=== PATIENT | male | born 1985 | race Caucasian/White ===

== ENCOUNTER 2017-06-29 03:34 | Inpatient (IN) | payer OTHER ==
[~2017-06-29] VITALS: Ht 182.9 cm; Wt 98.9 kg
[2017-06-29 05:15] VITALS: BP 137/85; PULSE 83; RESP 18; TEMP 97.1; O2SAT 98
[2017-06-29] MEDS ORDERED: ACETAMINOPHEN 325 MG TAB PO PRN (06:45)
[2017-06-29] MEDS ORDERED: ALUMINUM/MAGNESIUM/SIMETH 30 ML CUP PO PRN (06:45)
[2017-06-29] MEDS ORDERED: MAGNESIUM HYDROXIDE SUSP 30 ML CUP PO PRN (06:45)
--- NOTE | 2017-06-29 09:50 | HHI.HP ---
Provisional Diagnosis Admission Date Jun 29, 2017 at 05:20 [place] I. 1. Adjustment disorder with mixed anxiety and depression 2. Use of cannabis [place] II. Deferred Certification of Person's Competence To Provide Express and Informed Consent I have personally examined Tate Hart , a [facility] on, Jun 29, 2017 09:49. Express and informed consent means consent voluntarily given in writing, by a competent person, after sufficient explanation and disclosure of the subject matter involved to enable the person to make a knowing and willful decision without any element of force, fraud, deceit, duress, or other form of constraint or coercion. This person is 18 years of age or older, is not now known to be incompetent to consent to treatment with a guardian advocate, and does not have a health care surrogate or proxy currently making medical treatment decisions. I have found this person to be one of the following: [x] Competent to provide express and informed consent, as defined above, for voluntary admission to this facility and is competent to provide express and informed consent for treatment. He/she has the consistent capacity to make well reasoned, willful, and knowing decisions concerning his or her medical or mental health treatment. The person fully and consistently understands the purpose of the admission for examination/placement and is fully capable of personally exercising all rights assured under [place] Incompetent to provide express and informed consent to voluntary admission, and this is incompetent to provide express and informed consent to treatment. The person must be transferred to involuntary status and a petition for a guardian advocate filed with the Circuit Court. [] Refusing to provide express and informed consent to voluntary admission but is competent to provide express and informed consent for treatment. The person must be discharged or transferred to involuntary status. Form shall be completed within 24 hours of a person's arrival at the receiving facility and filed in the clinical record of each person: 1. Admitted on a voluntary basis 2. Permitted to provide express and informed consent to his/her own treatment 3. Allowed to transfer from involuntary to voluntary status 4. Prior to permitting a person to consent to his or her own treatment after having been previously found incompetent to consent to treatment. History of Present Illness Capacity: Has Capacity Psych Chief Complaint: "Yesterday was the culmination of all these things. I had a panic attack." HPI Mr. Hart is a 31 year-old male with no previously diagnosed psychiatric illness who presents in transfer from [facility] under a [place] Act. Documentation from [facility] reviewed. Patient was seen by Dr. Ceballos for telepsychiatric evaluation and reportedly endorsed suicidal ideation at that time. Reviewing our electronic medical record, it appears this is patient's first visit to [place]. Patient seen and examined with nurse. Chart reviewed. Case discussed with nursing staff. 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 He notes that he was at [employer] across the street from the [facility] and felt overwhelmed, "like someone was sitting on my chest." He saw the hospital across the street and thought he should stop in for some help. He adamantly denies reporting suicidal or homicidal ideation to the telepsychiatrist. He denies suicidal or homicidal ideation now. He says that he tried to hang himself about 8 months ago and would never make an attempt again because of the impact it would have on his family. He reports ongoing generalized anxiety as well as some ongoing low mood. No severe depressive elicited. No hypomanic or manic symptoms elicited presently, nor does the patient give a history consistent with bipolar disorder. He denies any audiovisual hallucinations. I can elicit no delusional material. The remainder of psychiatric ROS is negative. The patient has no physical complaints presently. Past psychiatric history: Patient knows of no previous psychiatric diagnoses. He had seen a psychotherapist, a Dr. Morse, twice weekly up until about 6 months ago when he had to stop due to financial reasons, but he is not sure that he was ever given a diagnosis. He did find the psychotherapy quite helpful. He denies a history of psychiatric admissions. He does report 1 previous suicide attempt about 8 months ago when he tried to hang himself as noted above. Family history: The patient reports a history of depression in both sides of his family. He denies a family history of suicide or substance use disorder. Chemical dependency history: The patient admits to occasional use of cannabis and describes himself as a "casual drinker." Social history: The patient reports that he is the eldest of 5 children. He lives alone. He is high school educated. 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 He is single with no children. He denies any or legal history. He is a Nondenominational although he notes that he has lost his britney somewhat after his mother from cancer. He did have several firearms but disposed of them at Dr. Morse's recommendation and denies access to guns or firearms presently. No reported trauma history. Review of Systems Except as stated in HPI: all other systems reviewed are Neg Past Family Social History Coded Allergies: No Known Allergies (Verified Allergy, Unknown, 06/29/17) Past Medical History No reported past medical history Current Medications Medications (Trade) Dose Ordered Sig/Laura Route Start Time Stop Time Status Last Admin (Tylenol) 650 mg Q4H PRN PO 06/29/17 06:45 (Milk Of Magnesia Liq) 30 ml DAILY PRN PO 06/29/17 06:45 (Mag-Al Plus Susp Liq) 30 ml Q6H PRN PO 06/29/17 06:45 (Pneumovax-23 Inj) 25 mcg ONCE ONCE IM 06/30/17 10:00 06/30/17 10:01 Patient's Strengths (min. 2) In a monitored setting. Verbally fluent. Physical Exam Physical exam completed by ED provider at outside hospital. On my examination today, the patient appears to be in no acute physical distress. No motor abnormalities noted. Labs and vitals reviewed: Vital Signs Vital Signs Date Time Temp Pulse Resp B/P (MAP) Pulse Ox O2 Delivery O2 Flow Rate FiO2 06/29/17 05:15 97.1 83 18 137/85 (102) 98 Lab Results Labs from outside hospital reviewed: CBC reveals mils leukocytosis with WBC 12.92. BMP unremarkable. UTox +ve for cannabinoids. Tylenol and alcohol level undetectable. Mental Status Examination Appearance: Appropriate Consciousness: Alert Orientation: x4 Motor Activity: Normal gait Speech: Unremarkable Language: Adequate Fund of Knowledge: Adequate Attention and Concentration: Adequate Memory: Unremarkable Mood: Anxious, Other (mildly depressed) Affect: Appropriate Thought Process & Associations: Intact, Logical, Linear Thought Content: Appropriate Hallucination Type: None Delusion Type: None Suicidal Ideation: No Suicidal Plan: No Suicidal Intention: No Homicidal Ideation: No Homicidal Plan: No Homicidal Intention: No Insight: Adequate Judgment: Adequate Assessment & Plan Problem List: (1) Adjustment disorder with mixed anxiety and depressed mood ICD Codes: F43.23 - Adjustment disorder with mixed anxiety and depressed mood (2) Use of cannabis ICD Codes: F12.90 - Cannabis use, unspecified, uncomplicated Assessment & Plan This is a 31-year-old male with psychiatric history as detailed above who presents in transfer from outside hospital. On my examination today, the patient denies any suicidal or homicidal ideation but does admit to feeling overwhelmed and complains of ongoing anxiety and low mood. He does have a history of previous suicide attempts. Nursing staff has obtain collateral from the patient's father which, although not terribly disturbing, is not particularly reassuring regarding patient's suicide/violence risk. Therefore, I think a period of inpatient observation is warranted, and the patient has agreed to remain voluntarily on the unit for this purpose. Admit inpatient. Voluntary status. Check CBC and CMP to follow up laboratory abnormalities. Check TSH. Offered scheduled psychotropic for management of anxiety and depression (e.g. SSRI), but patient declines at this time. Atarax as needed for anxiety, Benadryl as needed for insomnia or EPS. Vitals every shift. Counselor to see. Disposition planning. Estimated length of stay: 3-5 days. Discharge Planning Pending outcome of observation. Request HC Surrog/Guard Advoc?: No William Artis MD Jun 29, 2017 09:49
[2017-06-29] MEDS ORDERED: diphenhydrAMINE HCL 50 MG CAP PO PRN (17:45)
[2017-06-29] MEDS ORDERED: hydrOXYzine HCL 50 MG TAB PO PRN (17:45)
[2017-06-29 18:00] VITALS: BP 138/82; PULSE 105; RESP 16; TEMP 98.2; O2SAT 98
[2017-06-30 06:07] VITALS: BP 131/80; PULSE 90; RESP 18; TEMP 97.6; O2SAT 98
[2017-06-30] MEDS ORDERED: PNEUMOCOCCAL POLYVALENT INJ 25 MCG/0.5 ML SYR IM ONE (10:00)
--- NOTE | 2017-06-30 14:46 | HHI.PYPN ---
Subjective Chief Complaint: "Yesterday was the culmination of all these things. I had a panic attack." Remarks Patient was seen and case discussed with nursing. Patient rescinded his right of release. We discussed this reasons for admission and he continues to claim he had no suicidal ideation at the time and simply stated he had an attempted a months ago. We discussed medication options and patient is willing to try Lexapro. I suicidal or homicidal ideation intent or plan. Looking forward to [place] tour in [place] Mental Status Examination Appearance: Appropriate Consciousness: Alert Orientation: x4 Motor Activity: Normal gait Speech: Unremarkable Language: Adequate Fund of Knowledge: Adequate Attention and Concentration: Adequate Memory: Unremarkable Mood: Anxious, Other (mildly depressed) Affect: Appropriate Thought Process & Associations: Intact, Logical, Linear Thought Content: Appropriate Hallucination Type: None Delusion Type: None Suicidal Ideation: No Suicidal Plan: No Suicidal Intention: No Homicidal Ideation: No Homicidal Plan: No Homicidal Intention: No Insight: Adequate Judgment: Adequate Results Vitals/IOs Vital Signs Date Time Temp Pulse Resp B/P (MAP) Pulse Ox O2 Delivery O2 Flow Rate FiO2 06/30/17 06:07 97.6 90 18 131/80 (97) 98 Assessment & Plan Problem List: (1) Adjustment disorder with mixed anxiety and depressed mood ICD Codes: F43.23 - Adjustment disorder with mixed anxiety and depressed mood (2) Use of cannabis ICD Codes: F12.90 - Cannabis use, unspecified, uncomplicated Assessment & Plan Start Lexapro 10 mg by mouth daily Justification for Cont. Inpt. Patient would decompensate in a less restrictive setting Request HC Surrog/Guard Advoc?: No Yon Olivares DO Jun 30, 2017 14:46
[2017-06-30 18:14] VITALS: BP 140/104; PULSE 86; RESP 18; TEMP 97.4; O2SAT 99
[2017-07-01 05:31] VITALS: BP 140/87; PULSE 16; RESP 16; TEMP 92.8; O2SAT 99
[2017-07-01 11:20] LABS: BASOPHIL % 0.2 % (0.0-2.0); EOSINOPHIL # 0.2 TH/MM3 (0-0.4); EOSINOPHIL % 1.6 % (0.0-4.0); HEMATOCRIT 50.4 % (39.0-51.0); HEMOGLOBIN 17.8 GM/DL (13.0-17.0); LYMPH % 18.3 % (9.0-44.0); LYMPHOCYTE # 1.8 TH/MM3 (1.0-4.8); MEAN CELL VOLUME 85.3 FL (80.0-100.0); MEAN CORPUSCULAR HEMOGLOBIN 30.2 PG (27.0-34.0); MEAN CORPUSCULAR HGB CONC 35.4 % (32.0-36.0); MEAN PLATELET VOLUME 8.6 FL (7.0-11.0); MONO % 8.2 % (0.0-8.0); MONOCYTE # 0.8 TH/MM3 (0-0.9); NEUT % 71.7 % (16.0-70.0); PLATELET COUNT 238 TH/MM3 (150-450); RED BLOOD COUNT 5.91 MIL/MM3 (4.50-5.90); RED CELL DISTRIBUTION WIDTH 13.5 % (11.6-17.2); WHITE BLOOD COUNT 9.7 TH/MM3 (4.0-11.0)
[2017-07-01 11:37] LABS: ALBUMIN 4.1 GM/DL (3.4-5.0); AST (GOT) 10 U/L (15-37); BICARBONATE 27.6 MEQ/L (21.0-32.0); BLOOD UREA NITROGEN 17 MG/DL (7-18); CALCIUM 9.1 MG/DL (8.5-10.1); CHLORIDE 103 MEQ/L (98-107); GLOMERULAR FILTRATION RATE 77 ML/MIN (>89); GLUCOSE,RANDOM 80 MG/DL (74-106); SODIUM (NA) 139 MEQ/L (136-145)
[2017-07-01 11:38] LABS: ALT (GPT) 25 U/L (12-78); CHOLESTEROL 198 MG/DL (120-200)
[2017-07-01 11:47] LABS: ALKALINE PHOSPHATASE 77 U/L (45-117); CHOLESTEROL/ HDL RATIO 5.06 RATIO; HDL CHOLESTEROL 39.1 MG/DL (40.0-60.0); LDL CHOLESTEROL 128 MG/DL (0-99); TOTAL BILIRUBIN ADULT 0.9 MG/DL (0.2-1.0); TOTAL PROTEIN 7.3 GM/DL (6.4-8.2); TRIGLYCERIDES 157 MG/DL (42-150)
--- NOTE | 2017-07-01 13:01 | HHI.PYPN ---
Subjective Chief Complaint: "Yesterday was the culmination of all these things. I had a panic attack." Remarks Patient was seen and case discussed with nursing. Continues to state he did not have suicidal ideation before admission. Is alert and oriented 4 with a euthymic affect. 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 Mental Status Examination Appearance: Appropriate Consciousness: Alert Orientation: x4 Motor Activity: Normal gait Speech: Unremarkable Language: Adequate Fund of Knowledge: Adequate Attention and Concentration: Adequate Memory: Unremarkable Mood: Anxious, Other (mildly depressed) Affect: Appropriate Thought Process & Associations: Intact, Logical, Linear Thought Content: Appropriate Hallucination Type: None Delusion Type: None Suicidal Ideation: No Suicidal Plan: No Suicidal Intention: No Homicidal Ideation: No Homicidal Plan: No Homicidal Intention: No Insight: Adequate Judgment: Adequate Results Labs Test 07/01/17 09:10 White Blood Count 9.7 TH/MM3 Red Blood Count 5.91 MIL/MM3 Hemoglobin 17.8 GM/DL Hematocrit 50.4 % Mean Corpuscular Volume 85.3 FL Mean Corpuscular Hemoglobin 30.2 PG Mean Corpuscular Hemoglobin Concent 35.4 % Red Cell Distribution Width 13.5 % Platelet Count 238 TH/MM3 Mean Platelet Volume 8.6 FL Neutrophils (%) (Auto) 71.7 % Lymphocytes (%) (Auto) 18.3 % Monocytes (%) (Auto) 8.2 % Eosinophils (%) (Auto) 1.6 % Basophils (%) (Auto) 0.2 % Neutrophils # (Auto) 7.0 TH/MM3 Lymphocytes # (Auto) 1.8 TH/MM3 Monocytes # (Auto) 0.8 TH/MM3 Eosinophils # (Auto) 0.2 TH/MM3 Basophils # (Auto) 0.0 TH/MM3 CBC Comment DIFF FINAL Differential Comment Blood Urea Nitrogen 17 MG/DL Creatinine 1.10 MG/DL Random Glucose 80 MG/DL Total Protein 7.3 GM/DL Albumin 4.1 GM/DL Calcium Level 9.1 MG/DL Alkaline Phosphatase 77 U/L Aspartate Amino Transf (AST/SGOT) 10 U/L Alanine Aminotransferase (ALT/SGPT) 25 U/L Total Bilirubin 0.9 MG/DL Sodium Level 139 MEQ/L Potassium Level 3.5 MEQ/L Chloride Level 103 MEQ/L Carbon Dioxide Level 27.6 MEQ/L Anion Gap 8 MEQ/L Estimat Glomerular Filtration Rate 77 ML/MIN Triglycerides Level 157 MG/DL Cholesterol Level 198 MG/DL LDL Cholesterol 128 MG/DL HDL Cholesterol 39.1 MG/DL Cholesterol/HDL Ratio 5.06 RATIO Thyroid Stimulating Hormone 3rd Gen 1.370 uIU/ML Vitals/IOs Vital Signs Date Time Temp Pulse Resp B/P (MAP) Pulse Ox O2 Delivery O2 Flow Rate FiO2 07/01/17 05:31 92.8 16 16 140/87 (104) 99 Intake and Output 07/01/17 07/01/17 07/02/17 08:00 16:00 00:00 Intake Total 720 ml Balance 720 ml Assessment & Plan Problem List: (1) Adjustment disorder with mixed anxiety and depressed mood ICD Codes: F43.23 - Adjustment disorder with mixed anxiety and depressed mood (2) Use of cannabis ICD Codes: F12.90 - Cannabis use, unspecified, uncomplicated Assessment & Plan Continue current treatment plan Justification for Cont. Inpt. Patient will decompensate in a less restrictive setting Request HC Surrog/Guard Advoc?: No Yon Olivares DO Jul 01, 2017 13:01
[2017-07-01] MEDS ORDERED: diphenhydrAMINE HCL 50 MG CAP PO PRN (13:15)
[2017-07-01 13:54] LABS: HEMOGLOBIN A1C 4.9 % (4.3-6.0)
[2017-07-01] MEDS: ESCITALOPRAM OXALATE 10 MG TAB PO SCH (15:11)
[2017-07-01 18:43] VITALS: BP 167/92; PULSE 87; RESP 16; TEMP 97.5; O2SAT 98
[2017-07-02 05:38] VITALS: BP 149/71; PULSE 86; RESP 16; TEMP 97.9; O2SAT 98
[2017-07-02] MEDS: ESCITALOPRAM OXALATE 10 MG TAB PO SCH (08:16)
[2017-07-02] MEDS ORDERED: ESCI10TA PO (09:29)
--- NOTE | 2017-07-02 09:29 | HHI.DS ---
Psychiatry Discharge Summary Inpatient Psychiatric care?: Yes Advance Directive: No Reason Not Provided: Pt has none Mental Health AdvanceDirective: No Health Care Proxy: No Admission Admission Date Jun 29, 2017 at 05:20 Admission Diagnosis: (1) Adjustment disorder with mixed anxiety and depressed mood ICD Code: F43.23 - Adjustment disorder with mixed anxiety and depressed mood (2) Use of cannabis ICD Code: F12.90 - Cannabis use, unspecified, uncomplicated Brief History Mr. Hart is a 31 year-old male with no previously diagnosed psychiatric illness who presents in transfer from [facility] under a [place] Act. Documentation from [facility] reviewed. Patient was seen by Dr. Ceballos for telepsychiatric evaluation and reportedly endorsed suicidal ideation at that time. Reviewing our electronic medical record, it appears this is patient's first visit to [place]. Patient seen and examined with nurse. Chart reviewed. Case discussed with nursing staff. 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 He notes that he was at [employer] across the street from the [facility] and felt overwhelmed, "like someone was sitting on my chest." He saw the hospital across the street and thought he should stop in for some help. He adamantly denies reporting suicidal or homicidal ideation to the telepsychiatrist. He denies suicidal or homicidal ideation now. He says that he tried to hang himself about 8 months ago and would never make an attempt again because of the impact it would have on his family. He reports ongoing generalized anxiety as well as some ongoing low mood. No severe depressive elicited. No hypomanic or manic symptoms elicited presently, nor does the patient give a history consistent with bipolar disorder. He denies any audiovisual hallucinations. I can elicit no delusional material. The remainder of psychiatric ROS is negative. The patient has no physical complaints presently. Past psychiatric history: Patient knows of no previous psychiatric diagnoses. He had seen a psychotherapist, a Dr. Morse, twice weekly up until about 6 months ago when he had to stop due to financial reasons, but he is not sure that he was ever given a diagnosis. He did find the psychotherapy quite helpful. He denies a history of psychiatric admissions. He does report 1 previous suicide attempt about 8 months ago when he tried to hang himself as noted above. Family history: The patient reports a history of depression in both sides of his family. He denies a family history of suicide or substance use disorder. Chemical dependency history: The patient admits to occasional use of cannabis and describes himself as a "casual drinker." Social history: The patient reports that he is the eldest of 5 children. He lives alone. He is high school educated. 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 He is single with no children. He denies any or legal history. He is a Jainism although he notes that he has lost his britney somewhat after his mother from cancer. He did have several firearms but disposed of them at Dr. Morse's recommendation and denies access to guns or firearms presently. No reported trauma history. Tobacco Use In Past 30 Days: No Tobacco Past 30 Days Alcohol Use: Monthly or Less Hospital Course Patient was admitted to a locked, inpatient psychiatric unit. Appropriate precautions were in place throughout patient's hospital stay. Patient was seen and examined on the unit by psychiatry and also visited by counselor. Psychotropic medications were adjusted. Patient tolerated medications well without side effects. Patient had improvement in presenting psychiatric symptomatology during the course of his hospital stay. There was no evidence of any suicidality or homicidality on the inpatient unit. The patient remained in good behavioral control and was compliant with medications. On the day of discharge: Patient seen and examined with nurse. Chart reviewed. Case discussed with nursing staff. No behavioral issues noted overnight. On my examination today, the patient is requesting discharge from the inpatient psychiatric unit today. He denies any suicidal or homicidal ideation, intent or plan on direct questioning and contracts for safety. Mood is improved versus admission and I can elicit no depressive or hypomanic/manic symptoms at this time. He denies significant anxiety. He denies audiovisual hallucinations. I can elicit no delusional beliefs. There is no evidence of any impairment in reality construction. He denies side effects from medications presently but does report he had had some dizziness after he took his first dose of Lexapro yesterday. I have asked the nurse to check orthostatic vital signs, and the patient is not presently orthostatic. I have counseled the patient regarding safe standing. He has no other physical complaints. Suicide and violence risk assessment on day of discharge both suggest lower imminent risk, and the patient's level of function is adequate for outpatient care. The patient does not meet criteria for involuntary psychiatric hospitalization. He is requesting discharge from the inpatient psychiatric unit today, and I have no basis to retain him over his objection. I will discharge the patient home today with psychiatric follow-up as arranged by counselor. Patient is also follow-up with primary care. I counseled the patient to abstain from substances of abuse. I have counseled the patient regarding warning signs for need to return to the psychiatric emergency room as part of the general safety plan. Results Blood Pressure 149 / 71 Vital Signs Date Time Temp Pulse Resp B/P (MAP) Pulse Ox O2 Delivery O2 Flow Rate FiO2 07/02/17 05:38 97.9 86 16 149/71 (97) 98 Laboratory Tests Test 07/01/17 09:10 Red Blood Count 5.91 MIL/MM3 (4.50-5.90) Hemoglobin 17.8 GM/DL (13.0-17.0) Neutrophils (%) (Auto) 71.7 % (16.0-70.0) Monocytes (%) (Auto) 8.2 % (0.0-8.0) Aspartate Amino Transf (AST/SGOT) 10 U/L (15-37) Estimat Glomerular Filtration Rate 77 ML/MIN (>89) Triglycerides Level 157 MG/DL (42-150) LDL Cholesterol 128 MG/DL (0-99) HDL Cholesterol 39.1 MG/DL (40.0-60.0) Laboratory Results Test 07/01/17 09:10 Cholesterol Level 198 MG/DL (120-200) HDL Cholesterol 39.1 MG/DL (40.0-60.0) Hemoglobin A1c 4.9 % (4.3-6.0) LDL Cholesterol 128 MG/DL (0-99) Triglycerides Level 157 MG/DL (42-150) Summary of Procedures None done Imaging None done Pending results at discharge: No Medications # of Antipsychotic meds at D/C: 0 Approp Antipsych med options 1 - Minimum of three failed multiple trials of monotherapy. 2 - Documented plan to taper to monotherapy due to previous use of multiple meds OR cross-taper in progress at D/C. 3 - Documentation of augmentation of Clozapine. 4 - Justification other than those listed in allowable values 1-3, document here : Discharge Discharge Date: Jul 02, 2017 Discharge Diagnosis: (1) Adjustment disorder with mixed anxiety and depressed mood Diagnosis: Principal (resolved) ICD Code: F43.23 - Adjustment disorder with mixed anxiety and depressed mood (2) Use of cannabis Diagnosis: Secondary (counseled to quit) ICD Code: F12.90 - Cannabis use, unspecified, uncomplicated Pt Condition on Discharge: Stable Discharge Disposition: Discharge Home Discharge Instructions Diet Instructions: As Tolerated, No Restrictions Activities you can perform: Weight Bearing as Faith Scheduled Appointment: [facility] Appointment Date: Jul 02, 2017 Appointment Time: 8:00am New Orders: BASIC METABOLIC PROF - 1 Week New Medications: Escitalopram (Escitalopram) 10 Mg Tab 10 MG PO DAILY for Mental Health for 15 Days, #15 TAB 1 Refill Discharge Time <= 30 minutes Mental Status Examination Appearance: Appropriate Consciousness: Alert Orientation: x4 Motor Activity: Other (no motor abnormalities noted) Speech: Unremarkable Language: Adequate Fund of Knowledge: Adequate Attention and Concentration: Adequate Memory: Unremarkable Mood: Appropriate Affect: Appropriate (full and reactive), Euthymic Thought Process & Associations: Intact, Logical, Goal directed, Linear Thought Content: Appropriate Hallucination Type: None Delusion Type: None Suicidal Ideation: No Suicidal Plan: No Suicidal Intention: No Homicidal Ideation: No Homicidal Plan: No Homicidal Intention: No Insight: Adequate Judgment: Adequate Discharge/Advance Care Plan Health Problems: (1) Adjustment disorder with mixed anxiety and depressed mood (2) Use of cannabis Goals to promote your health * To prevent worsening of your condition and complications * To maintain your health at the optimal level Directions to meet your goals Take your medications as prescribed Follow your dietary instruction Follow activity as directed Keep your appointments as scheduled Take your immunizations and boosters as scheduled If your symptoms worsen call your PCP, if no PCP go to Urgent Care Center or Emergency Room For 24/ questions related to your inpatient stay or results of tests pending at discharge, please contact Dr. William Artis at Smoking is Dangerous to Your Health. Avoid second hand smoking William Artis MD Jul 02, 2017 09:29
== END 2017-07-02 12:00 | disposition home or self-care (01) | DRG 882 ==
LOC: H270 05:20 → H260 14:05
PROVIDERS: ADMIT Psychiatry & Neurology Psychiatry; ATTEND Psychiatry & Neurology Psychiatry
DX: F43.23 Adjustment disorder with mixed anxiety and depressed mood (principal); R45.851 Suicidal ideations; F12.90 Cannabis use, unspecified, uncomplicated; Z91.5 Personal history of self-harm
CPT/HCPCS: 80053; 80061; 83036; 84443; 85025